=== PATIENT | female | born 1995 | race Caucasian/White ===

== ENCOUNTER 2022-01-25 23:47 | Emergency (ER) | payer OTHER ==
[~2022-01-25] VITALS: Ht 167.6 cm; Wt 102.3 kg
[~2022-01-25 23:47] MED LIST: BIRTH CONTROL; IBU600 MG PO; MICRONASE2.5 MG PO; NORCO 325 MG-51 TAB PO; PERCOCET 325 MG1 TA2 PO; PRENATAL1 TA7 PO
[2022-01-26 00:15] VITALS: BP 147/65; PULSE 95; TEMP 98.8
[2022-01-26] MEDS ORDERED: ROBAXIN 75750 MG/TAB PO ×2 (00:32→00:41)
== END 2022-01-26 01:33 | disposition home or self-care (01) ==
LOC: COL.ER 23:47
DX: M54.6 Pain in thoracic spine (principal); Z87.39 Personal history of other diseases of the musculoskeletal system and connective tissue; Z28.310 Unvaccinated for COVID-19; Z32.02 Encounter for pregnancy test, result negative